=== PATIENT | male | born 1980 | race Caucasian/White ===

== ENCOUNTER → 2016-09-19 | Outpatient (CLI) | payer OTHER ==
[~2016-09-19] MED LIST: GASTROGRAFIN SOLUTION 30ML (Q9963) As Ordered ONE; ISOVUE-370 76% 100ML VIAL (Q9967) As Ordered ONE
--- NOTE | 2016-09-19 10:02 | REP ---
Clinical: Left flank mass. Technique: Axial contrast enhanced images from the lung bases to the pubic symphysis using oral and 100 ml Isovue 370 intravenous contrast material with coronal and sagittal re-formations. Findings: There is a 4.0 x 3.8 x 2.4 cm fatty lesion deep to the left obliquus externus muscle (images 49 - 61) which is compatible with lipoma. Lung bases are clear. Visualized heart and pericardium normal. Liver, spleen, pancreas, gallbladder, bilateral adrenal glands and kidneys are normal. The enteric system is without obstruction or acute inflammatory process. Sigmoid diverticula noted without acute diverticulitis. Pelvis demonstrates normal bladder and age appropriate prostate/seminal vesicles. No ascites. No intraperitoneal or retroperitoneal adenopathy. No free air. Abdominal vasculature normal without aneurysm or dissection. Osseous structures are intact. Impression: 1. Fatty mass deep to the left obliquus externus muscle compatible with lipoma. 2. Few scattered sigmoid diverticula without acute diverticulitis. Signed by Dima Schmitz MD 09/19/2016 09:53 A
== END ==
LOC: M RAD 07:34
PROVIDERS: ATTEND Surgery
DX: D48.7 Neoplasm of uncertain behavior of other specified sites (principal)

== ENCOUNTER → 2016-10-31 | Day surgery (SDC) | payer OTHER ==
[~2016-10-31] VITALS: Ht 188 cm; Wt 95.3 kg
[~2016-10-31] MED LIST changes: +ADV250INH INH; +ALBU17IN2 INH; +BUPIVACAINE/EPIN 0.25% 30 ML VIAL As Ordered ONE; -GASTROGRAFIN SOLUTION 30ML (Q9963) As Ordered ONE; -ISOVUE-370 76% 100ML VIAL (Q9967) As Ordered ONE; +KETOROLAC 60 MG/2 ML VIAL (J1885) As Ordered ONE; +LIDOCAINE 2% INJ 100 MG/5 ML SDV (FOR ANES.) As Ordered ONE; +LR 1,000 ML IV SCH; +MIDAZOLAM INJ 2 MG/2 ML VIAL (J2250) As Ordered ONE; +ONDANSETRON 4MG/2ML VIAL (J2405) As Ordered ONE; +ONDANSETRON 4MG/2ML VIAL (J2405) IV PRN; +PERCOCET 5MG/325MG TAB PO PRN; +PROPOFOL 200 MG/20 ML VIAL As Ordered ONE; +ceFAZolin SOD 1 GM in D5W MINI-BAG PLUS 50 ML IV ONE; +fentaNYL 100 MCG/2 ML INJECTION (J3010) As Ordered ONE; +fentaNYL 100 MCG/2 ML INJECTION (J3010) IV PRN
[2016-10-31 08:50] VITALS: BP 120/80
--- NOTE | 2016-11-05 06:14 | RO ---
DATE OF PROCEDURE: 10/31/2016 PREOPERATIVE DIAGNOSIS: Left flank lipoma. POSTOPERATIVE DIAGNOSIS: Left flank lipoma. PROCEDURE: Excision of intramuscular flank lipoma. SURGEON: Colton Torres MD SUBSTATION OPERATOR: ANESTHESIA: Local with sedation. ESTIMATED BLOOD LOSS (EBL): Minimal. FLUIDS: Crystalloid. DESCRIPTION OF PROCEDURE: Patient was brought to the operating room, was placed in a right lateral decubitus position with a bump underneath the right side of his abdomen. Once the area/lipoma was identified preoperatively, this had been marked and the area then was prepped and draped in the usual sterile fashion. Local lidocaine mixed with epinephrine was infiltrated into the skin overlying this lipomatous lesion, which was very deep and on CT scan did reveal that it was under the external oblique muscle fibers. The skin incision was made. Electrocautery was used to cut through dermis, underlying subcutaneous tissue. Blunt retraction was used to dissect down through Destini's level down to the level of the muscular fascia. Once this was identified, a muscle-splitting incision was created over the top of the lipoma. Once this was split using some blunt dissection and some minimal electrocautery on the fascia, the retractors were used to provide good exposure to the underlying lipoma. This lipoma was able to be moved and removed mostly with some blunt dissection. Eventually after this was mobilized at least three corners of it with simple blunt dissection, the base of it was started to be mobilized up into the wound itself and the base of it was transected using electrocautery. Most of this was just loose areolar tissue that was transected with the electrocautery. There was some minimal blood supply going to it, but otherwise no other significant abnormalities. It did not seem to be continuing on into the abdominal cavity. Hemostasis was readily identified and achieved, and the muscle was approximated with some Vicryls on the superficial fascia and the subcutaneous tissue brought together with #2-0 Vicryl. #3-0 Vicryl was used to approximate the dermis. #4-0 Vicryl was used to approximate the skin. Steri-Strips and a dry sterile dressing was applied. The patient was awakened from his sedation, brought to the recovery room awake, alert, hemodynamically stable. Sponge and needle counts correct times two.
== END | disposition home or self-care (01) ==
LOC: M SDC 05:54
PROVIDERS: ATTEND Surgery
DX: D17.1 Benign lipomatous neoplasm of skin and subcutaneous tissue of trunk (principal); J45.909 Unspecified asthma, uncomplicated; Z79.51 Long term (current) use of inhaled steroids
CPT/HCPCS: 21932; 88304; J0690; J1885; J2250; J2405; J3010